=== PATIENT | female | born 1990 | race Hispanic/Latino ===

== ENCOUNTER 2017-06-13 10:15 | Inpatient (IN) | payer BC ==
[~2017-06-13] VITALS: Ht 147.3 cm; Wt 95.7 kg
[~2017-06-13 10:15] MED LIST: PREN1TAB80 PO
[2017-06-13 12:11] LABS: HEMATOCRIT 33.8 % (36-48); MEAN CORPUSCULAR HEMOGLOBIN 25.1 pg (27.0-33.0); MEAN CORPUSCULAR HGB CONC 32.5 g/dL (32.0-36.0); MEAN CORPUSCULAR VOLUME 77.3 fL (79-99); PLATELET COUNT (AUTO) 250 K/uL (130-400); RED BLOOD CELL COUNT(AUTO) 4.37 MIL/uL (4.00-5.50); RED CELL DISTRIBUTION WIDTH 15.2 % (11.0-15.5); WHITE BLOOD COUNT (AUTO) 7.2 K/uL (4.8-10.8)
[2017-06-14] VITALS: BP 103/61
[2017-06-14] MEDS ORDERED: CALDOLOR 800MG+NS 250ML 250 ML IV PRN (05:45)
[2017-06-14] MEDS ORDERED: CEFAZOLIN SODIUM 1 GM VIAL IVP PRN (05:45)
[2017-06-14] MEDS ORDERED: LACTATED RINGERS 1000ML 1,000 ML IV SCH (05:45)
[2017-06-14] MEDS ORDERED: OXYTOCIN 10 USP UNITS/ML ONE ×2 (07:31→14:37)
[2017-06-14] MEDS ORDERED: SUCCINYLCHOLINE 200MG/10ML SYR ONE (08:14)
[2017-06-14] MEDS ORDERED: EPHEDRINE SULFATE 50 MG/ML AMPULE ONE (08:14)
[2017-06-14 08:21] LABS: HEPATITIS Bs ANTIGEN SCREEN P Negative (Negative)
[2017-06-14] MEDS ORDERED: DURAMORPH PF1 MG/ML 10ML AMP IV ONE (08:51)
[2017-06-14] MEDS ORDERED: CEFAZOLIN SODIUM 1 GM VIAL IVP ONE (09:12)
[2017-06-14 12:00] VITALS: BP 113/70
[2017-06-14] MEDS ORDERED: METOCLOPRAMIDE 10 MG/2 ML VIAL IVP PRN (12:30)
[2017-06-14] MEDS ORDERED: NALOXONE HCL 0.4 MG/1 ML ML IVP PRN ×2 (12:30)
[2017-06-14] MEDS ORDERED: DiphenhydrAMINE HCL 50 MG/ML VIAL IVP PRN (12:30)
[2017-06-14] MEDS ORDERED: ONDANSETRON HCL 4 MG/2 ML 8 MG in SODIUM CHLORIDE 0.9% 50 ML IVP NR (12:30)
[2017-06-14] MEDS ORDERED: MORPHINE SULFATE 2 MG/ML 1ML SYG IVP PRN (12:30)
[2017-06-14] MEDS ORDERED: PROMETHAZINE HCL 25 MG/ML 1ML AMPULE IM PRN ×2 (12:30→13:45)
[2017-06-14] MEDS ORDERED: HYDROCODONE/ACETAMINOPHEN 5/325 MG TAB PO PRN ×2 (12:30)
[2017-06-14] MEDS ORDERED: ONDANSETRON HCL 4 MG/2 ML VIAL IVP PRN ×2 (12:30)
[2017-06-14] MEDS ORDERED: EPHEDRINE SULFATE 50 MG/ML AMPULE IVP PRN (12:30)
[2017-06-14] MEDS ORDERED: ONDANSETRON HCL MDV 20ML 2 MG/ML VIAL IVP PRN (12:36)
[2017-06-14] MEDS: ONDANSETRON HCL MDV 20ML 2 MG/ML VIAL IVP PRN ×2 (12:42→17:34)
[2017-06-14] MEDS ORDERED: OXYTOCIN-LR 20 UNITS/1000 ML 1,000 ML IV PRN (13:38)
[2017-06-14] MEDS ORDERED: SODIUM CHLORIDE 0.9% 10 ML VIAL IVP PRN (13:45)
[2017-06-14] MEDS ORDERED: MEPERIDINE-PF 75 MG/ML SYG IM PRN (13:45)
[2017-06-14 16:26] VITALS: BP 108/50
[2017-06-14] MEDS: CALDOLOR 800MG+NS 250ML 250 ML IV SCH (17:35)
[2017-06-14 19:40] VITALS: BP 119/59
[2017-06-14] MEDS ORDERED: CALDOLOR 800MG+NS 250ML 250 ML IV SCH (21:45)
[2017-06-14] MEDS: DEXTROSE 5 %-0.45 % NACL 1,000 ML IV PRN (23:45)
[2017-06-15] VITALS (7 sets, daily range): BP systolic 96–125; BP diastolic 51–73
[2017-06-15] MEDS: CALDOLOR 800MG+NS 250ML 250 ML IV SCH (01:07)
[2017-06-15 06:38] LABS: HEMATOCRIT 27.2 % (36-48); MEAN CORPUSCULAR HEMOGLOBIN 25.5 pg (27.0-33.0); MEAN CORPUSCULAR HGB CONC 32.7 g/dL (32.0-36.0); MEAN CORPUSCULAR VOLUME 78.1 fL (79-99); PLATELET COUNT (AUTO) 174 K/uL (130-400); RED BLOOD CELL COUNT(AUTO) 3.48 MIL/uL (4.00-5.50); RED CELL DISTRIBUTION WIDTH 15.5 % (11.0-15.5); WHITE BLOOD COUNT (AUTO) 8.4 K/uL (4.8-10.8)
[2017-06-15] MEDS: DEXTROSE 5 %-0.45 % NACL 1,000 ML IV PRN (08:41)
[2017-06-15] MEDS ORDERED: ACETAMINOPHEN-CODEINE 300/30MG TAB PO PRN (12:45)
[2017-06-15] MEDS ORDERED: BISACODYL 10 MG SUPP.RECT RC PRN (12:45)
[2017-06-15] MEDS ORDERED: DIPHENHYDRAMINE HCL 25 MG CAPSULE PO PRN (12:45)
[2017-06-15] MEDS: IBUPROFEN 800 MG TAB PO SCH ×2 (15:42→22:08)
[2017-06-15] MEDS: DIPH,PERTUSS(ACELL),TET VAC/PF 0.5 ML VIAL IM SCH (18:14)
[2017-06-15] MEDS: DOCUSATE SODIUM 100 MG CAP PO SCH (20:55)
[2017-06-15] MEDS: SIMETHICONE 80 MG TAB.CHEW PO PRN (20:55)
[2017-06-16 03:59] VITALS: BP 111/69
[2017-06-16] MEDS: IBUPROFEN 800 MG TAB PO SCH (05:44)
[2017-06-16] MEDS: DIPH,PERTUSS(ACELL),TET VAC/PF 0.5 ML VIAL IM SCH (06:48)
[2017-06-16 07:22] VITALS: BP 106/69
[2017-06-16] MEDS: SIMETHICONE 80 MG TAB.CHEW PO PRN (08:57)
[2017-06-16] MEDS: DOCUSATE SODIUM 100 MG CAP PO SCH (08:57)
[2017-06-16] MEDS ORDERED: DOCU240C25 PO (09:57)
[2017-06-16] MEDS ORDERED: MO8B PO (09:58)
[2017-06-16] MEDS ORDERED: ACET1TAB12 PO (09:59)
[2017-06-16 11:40] VITALS: BP 122/69
== END 2017-06-16 13:35 | disposition home or self-care (01) | DRG 765 ==
LOC: EDSTATUS 10:15 → LDH 06-14 05:41 → WSH 06-14 11:56
PROC: 10D00Z1 Extraction of Products of Conception, Low, Open Approach (ICD-10-PCS; 2017-06-14)
PROC: 3E0234Z Introduction of Serum, Toxoid and Vaccine into Muscle, Percutaneous Approach (ICD-10-PCS; 2017-06-14)
PROC: 0UL70ZZ Occlusion of Bilateral Fallopian Tubes, Open Approach (ICD-10-PCS; principal; 2017-06-14 08:00)
DX: O34.211 Maternal care for low transverse scar from previous cesarean delivery (principal); D62 Acute posthemorrhagic anemia; Z30.2 Encounter for sterilization; Z37.0 Single live birth; O90.81 Anemia of the puerperium; Z3A.39 39 weeks gestation of pregnancy; Z23 Encounter for immunization
CPT/HCPCS: 36415; 59510; 85027; 86592; 86850; 86900; 86901; 87340; 88302; 90715; A4344; A4606; J0330; J0690; J1741; J2274; J2590; J3490; J7120